=== PATIENT | female | born 1995 ===

== ENCOUNTER 2018-08-14 13:27 | Outpatient (CLI) | payer OTHER | END 2018-08-14 14:30 | disposition home or self-care (01) | LOC: NST 13:27 | DX: Z34.83 Encounter for supervision of other normal pregnancy, third trimester (principal) ==

== ENCOUNTER 2018-08-18 06:38 | Outpatient (CLI) | payer OTHER | END 2018-08-18 08:18 | disposition still patient (30) | LOC: OBS/DEL 06:38 | DX: O47.1 False labor at or after 37 completed weeks of gestation (principal); Z34.03 Encounter for supervision of normal first pregnancy, third trimester ==

== ENCOUNTER 2018-08-18 07:44 | Inpatient (IN) | payer OTHER ==
[~2018-08-18] VITALS: Ht 170.2 cm; Wt 86.2 kg
== END 2018-08-20 11:37 | DRG 768 ==
LOC: LDR 07:44 → OB/GYN 07:44
PROVIDERS: ADMIT Obstetrics & Gynecology
PROC: 10E0XZZ Delivery of Products of Conception, External Approach (ICD-10-PCS; principal; 2018-08-18)
PROC: 0DQR0ZZ Repair Anal Sphincter, Open Approach (ICD-10-PCS; 2018-08-18)
PROC: 0W8NXZZ Division of Female Perineum, External Approach (ICD-10-PCS; 2018-08-18)
PROC: 3E033VJ Introduction of Other Hormone into Peripheral Vein, Percutaneous Approach (ICD-10-PCS; 2018-08-18)
PROC: 4A1HXCZ Monitoring of Products of Conception, Cardiac Rate, External Approach (ICD-10-PCS; 2018-08-18)
DX: O70.21 Third degree perineal laceration during delivery, IIIa (principal); Z37.0 Single live birth; Z3A.39 39 weeks gestation of pregnancy

== ENCOUNTER 2021-01-15 14:34 | Outpatient (CLI) | payer OTHER | END 2021-01-15 14:48 | disposition home or self-care (01) | LOC: NST 14:34 | PROVIDERS: ATTEND Obstetrics & Gynecology | DX: Z34.82 Encounter for supervision of other normal pregnancy, second trimester (principal) ==

== ENCOUNTER 2021-05-02 13:30 | Inpatient (IN) | payer OTHER ==
[~2021-05-02] VITALS: Ht 170.2 cm; Wt 94.8 kg
== END 2021-05-07 10:04 | disposition home or self-care (01) | DRG 807 ==
LOC: LDR 05-05 06:52 → SURG-SUITE 05-05 06:52 → LDR 05-21 13:30
PROVIDERS: ADMIT Obstetrics & Gynecology; ATTEND Obstetrics & Gynecology
PROC: 10E0XZZ Delivery of Products of Conception, External Approach (ICD-10-PCS; principal; 2021-05-05)
PROC: 0KQM0ZZ Repair Perineum Muscle, Open Approach (ICD-10-PCS; 2021-05-05)
PROC: 4A1HXFZ Monitoring of Products of Conception, Cardiac Rhythm, External Approach (ICD-10-PCS; 2021-05-05)
DX: O70.1 Second degree perineal laceration during delivery (principal); Z37.0 Single live birth; Z3A.37 37 weeks gestation of pregnancy; Z20.822 Contact with and (suspected) exposure to COVID-19